=== PATIENT | male | born 1945 | race Caucasian/White ===

== ENCOUNTER → 2017-03-13 | Outpatient (CLI) | payer OTHER | END | disposition home or self-care (01) | LOC: US 13:51 | DX: E11.8 Type 2 diabetes mellitus with unspecified complications (principal); I10 Essential (primary) hypertension; R79.89 Other specified abnormal findings of blood chemistry ==

== ENCOUNTER 2017-12-29 22:47 | Inpatient (IN) | payer OTHER ==
[~2017-12-29] VITALS: Ht 193 cm; Wt 116.9 kg
--- NOTE | ~2017-12-29 | O ---
[place], [place] OPERATIVE NOTE [facility]: [id number] UNIT #: [id number] [facility] DOCTOR: MALLORY MEYERS,RACHELLE BIRTHDATE: [birth year] DOS: 12/31/2017 INDICATIONS: The patient has presented with a lower GI bleed. The patient with a history of 7 polypectomies in [facility] done and has been taking aspirin immediately postop and 2 days prior to admission. He has been experiencing blood in the stool in a gross form. His H and H has dropped. He is status post transfusion stabilization. PROCEDURE: Today's procedure part of investigation is colonoscopy plus tattoo marking of the polypoid lesion at hepatic flexure with bleeding as well as epinephrine injection at the site for marking in case surgical intervention becomes needed. PREMEDICATION: Versed and propofol. SCOPE: [employer] colonoscope 10L video. REPORT: After putting the patient in left lateral position and application of lubricant to the scope, the scope was introduced. Thereafter, under direct visualization, advanced through the length of colon without difficulty. Colon is filled of blood all the way to cecum. There is a nodular broad base infiltrated polypoid lesion at hepatic flexure, which appears to be very agitated. If not oozing blood at the present time, but appears to be very friable and has been manipulated apparently before. So, this area was injected to ensure there is no further bleeding from this polyp. Tattoo marking of the area with 2 mL of dye was undertaken and multiple sites of previous polypectomies was noticed. Blood is present all the way to the cecum. Visualization is limited. Air was suctioned out. The patient was extubated, tolerated procedure well. IMPRESSION: Lower gastrointestinal bleed, most likely from the sites of 1 of these 7 polypectomies that has been done plus epinephrine injection and hemostasis therapy for lower GI bleed plus tattoo marking of the hepatic flexure broad-based polyp infiltrated. PLAN AND DISCUSSION: Apparently, the data is in [facility] where he has had his polypectomy. At the present time, I am going to start this patient on Sandostatin drip and he has been on aspirin. I wonder platelet dysfunction also is playing a role, although his platelet function test collagen epinephrine and shows result of 134. He is actively losing blood. We are going to keep him on clear liquid. We are going to reassess his colon again on Sunday, he is going to be observed in monitor bed and I may even give him a pack unit of platelets since he is actively losing blood. [place], [place] OPERATIVE NOTE NAME: DAT SHANNON UNIT #: [id number] ROOM: [facility] DOCTOR: MALLORY MEYERS,RACHELLE BIRTHDATE: [birth year] RACHELLE TEJADA MD CM:OPRECORD:OPERATIVE NOTE [id number] RACHELLE TEJADA MD 12/31/17 1407 interface
--- NOTE | ~2017-12-29 | O ---
[place], [place] OPERATIVE NOTE NAME: DAT SHANNON UNIT #: [id number] ROOM: 518 DOCTOR: RACHELLE TEJADA MD BIRTHDATE: [birth year] DOS: 01/02/2018 HISTORY OF PRESENT ILLNESS: A 73-year-old patient who presented status post femoral polypectomy in [facility] with aggressive lower gastrointestinal bleed. PLAN AND DISCUSSION: The patient has been taking his aspirin after discharge from [place] and he had a colonoscopy with us. Colon was filled with blood and suspected polypoid lesion that was bleeding was injected with epinephrine. Bleeding has stopped today and he has been holding his H and H. PROCEDURE: Today's procedure part of investigation is colonoscopy and for assessment the continuation of bleed. PREMEDICATION: Propofol. SCOPE: Olympus forward-viewing colonoscope 10L video. REPORT: After putting the patient in left lateral position and application of lubricant to rectal pouch and digital examination, the scope was introduced. Thereafter, under direct visualization, advanced through the length of colon without difficulty. Base of the cecum explored. Large ileocecal valve was identified. Multiple sites of polypectomies throughout the colon was identified. The hepatic flexure largely infiltrated polyp was identified. This has already been tattooed in last colonoscopy and it is not bleeding at this time. No polypectomy site is bleeding at this point. Therefore, air was suctioned out and the patient extubated, tolerated the procedure well. IMPRESSION: 1. Lower gastrointestinal bleed secondary to previous polypectomies from [facility] with admission of active lower GI bleed. 2. Large polypoid infiltrative lesion at hepatic flexure. This polypoid lesion has already been tattoo marked and needs to be removed through wedge resection surgically or segmental resection. PLAN AND DISCUSSION: Otherwise, I am going to start the patient on a soft diet today and follow up on H and H tomorrow morning. Once I make sure that the H and H is not dropping, then we can discharge and follow as outpatient. Next colonoscopy in 10 years unless patient has symptoms for which follow-up should be sooner. [place], [place] OPERATIVE NOTE NAME: DAT SHANNON UNIT #: [id number] ROOM: 518 DOCTOR: RACHELLE TEJADA MD BIRTHDATE: [birth year] RACHELLE TEJADA MD CM:ARCH[place]:OPERATIVE NOTE [id number] RACHELLE TEJADA MD 01/09/18 1659 interface
--- NOTE | ~2017-12-29 | CON ---
[place], [place] REPORT OF CONSULTATION NAME: DAT SHANNON UNIT #: [id number] ROOM: [facility] DOCTOR: RACHELLE TEJADA MD BIRTHDATE: [birth year] DOS: 12/30/2017 HISTORY OF PRESENT ILLNESS: The patient has presented with melanotic stool. The patient has had last week seven polyps removed from colon in [place]. He has been taking aspirin and he has been for past 2 days having bloody BM. White blood cell was 16.7, H and H of 8 and 28 at the time of admission and platelets of 204. Ionized calcium was 4.7. INR was 1.0. Comprehensive metabolic panel: BUN and creatinine of 33 and 2.0, glucose of 354. Electrolytes were balanced. Liver function tests normal. Magnesium 1.9. Chest x-ray, diminished inspiration, otherwise CBC differential was followed and drop H and H to 7 and 24 was recognized and the most recent one status post transfusion, improved to 8 and 26. PAST MEDICAL HISTORY: Associated with COPD, BPH, diabetes, hyperlipidemia, obesity, systemic hypertension. PAST SURGICAL HISTORY: Multiple colonic polyps removal. SOCIAL HISTORY: Passive smoker, rare alcohol consumer. FAMILY HISTORY: Noncontributory. ALLERGIES: To no known medications. MEDICATIONS: Medication list has been reviewed including aspirin. REVIEW OF SYSTEMS: In general, HEENT: Denies double vision, blurred vision. RESPIRATORY: Denies shortness of breath. CARDIOVASCULAR: Denies acute chest pain. DIGESTIVE SYSTEM: GI bleed. PHYSICAL EXAMINATION: VITAL SIGNS: Stable. HEENT: Head normocephalic, nontraumatic. Mouth and buccal mucosa benign, edentulous. NECK: Supple, no thyromegaly, no cervical lymphadenopathy. CHEST: Symmetric anatomy, equal expansion. No wheeze, no rhonchi. HEART: Normal sinus rhythm, no gallop, no murmur. ABDOMEN: Soft, obese, no hepato-organomegaly. Bowel sounds present. EXTREMITIES: No cyanosis, no pedal edema. NEUROLOGIC: Alert, oriented to time, place, person. IMPRESSION: Gastrointestinal bleed, most likely secondary to postop complication of seven polypectomies that have been done in [place] in addition of the patient taking aspirin daily since then and draw for an H and H to hemoglobin of 7, status post transfusion. PLAN AND DISCUSSION: Withholding aspirin, organizing a colonoscopy tomorrow so that we can do coagulation therapy. We are going to do platelet function test [place], [place] REPORT OF CONSULTATION NAME: DAT SHANNON UNIT #: [id number] ROOM: [facility] DOCTOR: MALLORY MEYERS,RACHELLE BIRTHDATE: [birth year] in case transfusion of platelets is required and clinical reassessment. OTHER ADJUNCTIVE DIAGNOSES: As outlined in paragraph, past medical, surgical history including diabetes, hyperlipidemia, obesity, COPD, BPH, essential hypertension, GI bleed and colonic polyp. RACHELLE TEJADA MD CM:CONSTR:REPORT OF CONSULTATION 09 12/31/17 0137 interface
[2017-12-29 22:58] VITALS: BP 92/66
[2017-12-29 23:50] VITALS: BP 103/59
[2017-12-29 23:55] LABS: BASO # 0.1 10*3/uL (0.0-0.1); BASO % 0.4 % (0.0-1.0); EOS % 0.1 % (1.0-4.0); HEMATOCRIT 28.1 % (42.0-52.0); HEMOGLOBIN 8.7 g/dl (14.0-18.0); LYMPH # 1.1 10*3/uL (1.3-4.4); LYMPH % 6.8 % (27.0-41.0); MEAN CELL VOLUME 88.9 fl (80.0-94.0); MEAN CORPUSCULAR HGB 27.5 pg (27.0-31.0); MEAN PLATELET VOLUME 9.3 fl (9.6-12.3); MONO # 0.5 10*3/uL (0.1-1.0); MONO % 2.8 % (3.0-9.0); NEUT # 14.9 10*3/uL (2.3-7.9); NEUT % 89.3 % (47.0-73.0); PLATELET COUNT AUTOMATED 204 10*3/uL (130-400); RED BLOOD COUNT 3.16 10*6/uL (4.50-5.90); RED CELL DISTRI WIDTH 13.5 % (0-14.5); WHITE BLOOD COUNT 16.7 10*3/uL (4.8-10.8)
[2017-12-30] VITALS (14 sets, daily range): BP systolic 109–151; BP diastolic 61–75
[2017-12-30 00:06] LABS: ACT PARTIAL THROMBO TIME 21.2 SECONDS (20.8-31.5)
[2017-12-30 00:25] LABS: ALBUMIN 2.9 gm/dl (3.1-4.5); ALKALINE PHOSPHATASE 48 U/L (45-117); BUN 33 mg/dl (7-24); CHLORIDE 107 mmol/L (98-107); CREATININE 2.07 mg/dL (0.70-1.30); LIPASE 69 U/L (73-393); POTASSIUM 4.8 mmol/L (3.5-5.1); SGOT/AST 8 IU/L (3-35); SGPT/ALT 16 U/L (12-78); SODIUM 138 mmol/L (136-145); TOTAL PROTEIN 5.7 gm/dL (6.4-8.2); TROPONIN I < 0.015 ng/ml (<0.045)
[2017-12-30] MEDS ORDERED: ASPIR 8181 MG PO (00:36)
[2017-12-30] MEDS ORDERED: AMLODIPINE BESY10 MG PO (00:37)
[2017-12-30] MEDS ORDERED: GLIPIZIDE10 M2 PO (00:37)
[2017-12-30] MEDS ORDERED: SIMVASTATIN20 MG PO (00:38)
[2017-12-30] MEDS ORDERED: SYMB160 INH (00:39)
[2017-12-30] MEDS ORDERED: TERAZOSIN HCL2 M1 PO (00:39)
[2017-12-30] MEDS ORDERED: LASIX20 MG PO (00:39)
[2017-12-30] MEDS ORDERED: SPIRIVA -- 3018 MCG INH (00:40)
[2017-12-30] MEDS ORDERED: LANTUS SOL100 UNIT/1 SQ (00:41)
[2017-12-30 03:49] LABS: BILIRUBIN NEGATIVE (NEGATIVE); BLOOD TRACE-LYSED (NEGATIVE); CLARITY SL CLOUDY (CLEAR); COLOR YELLOW (YELLOW); GLUCOSE 3+ (NEGATIVE); KETONE TRACE (NEGATIVE); LEUKO ESTERASE 2+ (NEGATIVE); NITRITE NEGATIVE (NEGATIVE); UROBILINOGEN 0.2 E.U./dl (0.2-1.0)
[2017-12-30 03:58] LABS: BACTERIA 3+; EPITHELIAL CELLS TNTC; RBC 16-20 rbc/hpf (0-2); WBC TNTC wbc/hpf (0-5)
[2017-12-30 06:15] LABS: BASO % 0.2 % (0.0-1.0); EOS % 0.1 % (1.0-4.0); HEMOGLOBIN 7.7 g/dl (14.0-18.0); LYMPH # 2.4 10*3/uL (1.3-4.4); LYMPH % 17.6 % (27.0-41.0); MEAN CELL VOLUME 86.6 fl (80.0-94.0); MEAN CORPUSCULAR HGB 27.8 pg (27.0-31.0); MEAN CORPUSCULAR HGB CONC 32.1 g/dl (33.0-37.0); MEAN PLATELET VOLUME 8.5 fl (9.6-12.3); MONO % 7.7 % (3.0-9.0); NEUT % 73.8 % (47.0-73.0); PLATELET COUNT AUTOMATED 153 10*3/uL (130-400); RED BLOOD COUNT 2.77 10*6/uL (4.50-5.90); RED CELL DISTRI WIDTH 13.5 % (0-14.5); WHITE BLOOD COUNT 13.5 10*3/uL (4.8-10.8)
[2017-12-30 06:26] LABS: CREATININE 1.68 mg/dL (0.70-1.30); POTASSIUM 4.4 mmol/L (3.5-5.1)
[2017-12-30 06:31] LABS: PHOSPHOROUS 3.4 mg/dL (2.5-4.9)
[2017-12-30 06:37] LABS: THYROID STIM HORMONE (HS) 0.459 uIU/ml (0.358-4.75)
[2017-12-30 07:32] LABS: VITAMIN D, 25-HYDROXY 41.3 ng/mL (30-100)
[2017-12-30 07:46] LABS: IRON 14 ug/dL (65-175); TOTAL IRON BINDING CAPACITY 245 ug/dl (250-450)
[2017-12-30 18:22] LABS: BASO # 0.1 10*3/uL (0.0-0.1); BASO % 0.4 % (0.0-1.0); EOS # 0.1 10*3/uL (0.0-0.4); EOS % 0.8 % (1.0-4.0); HEMATOCRIT 26.4 % (42.0-52.0); HEMOGLOBIN 8.6 g/dl (14.0-18.0); LYMPH # 2.7 10*3/uL (1.3-4.4); LYMPH % 20.7 % (27.0-41.0); MEAN CELL VOLUME 87.1 fl (80.0-94.0); MEAN CORPUSCULAR HGB 28.4 pg (27.0-31.0); MEAN CORPUSCULAR HGB CONC 32.6 g/dl (33.0-37.0); MEAN PLATELET VOLUME 9.3 fl (9.6-12.3); MONO # 1.1 10*3/uL (0.1-1.0); MONO % 8.7 % (3.0-9.0); NEUT % 68.8 % (47.0-73.0); PLATELET COUNT AUTOMATED 160 10*3/uL (130-400); RED BLOOD COUNT 3.03 10*6/uL (4.50-5.90); RED CELL DISTRI WIDTH 13.6 % (0-14.5)
[2017-12-30 21:36] LABS: HEMATOCRIT 26.5 % (42.0-52.0); HEMOGLOBIN 8.5 g/dl (14.0-18.0)
[2017-12-31] VITALS (10 sets, daily range): BP systolic 131–171; BP diastolic 62–83
[2017-12-31 05:25] LABS: BASO # 0.1 10*3/uL (0.0-0.1); BASO % 0.5 % (0.0-1.0); EOS # 0.2 10*3/uL (0.0-0.4); EOS % 1.8 % (1.0-4.0); HEMATOCRIT 26.7 % (42.0-52.0); HEMOGLOBIN 8.7 g/dl (14.0-18.0); LYMPH # 2.6 10*3/uL (1.3-4.4); LYMPH % 20.3 % (27.0-41.0); MEAN CELL VOLUME 88.1 fl (80.0-94.0); MEAN CORPUSCULAR HGB 28.7 pg (27.0-31.0); MEAN CORPUSCULAR HGB CONC 32.6 g/dl (33.0-37.0); MEAN PLATELET VOLUME 8.6 fl (9.6-12.3); MONO % 7.5 % (3.0-9.0); NEUT # 8.8 10*3/uL (2.3-7.9); NEUT % 69.4 % (47.0-73.0); PLATELET COUNT AUTOMATED 167 10*3/uL (130-400); RED BLOOD COUNT 3.03 10*6/uL (4.50-5.90); RED CELL DISTRI WIDTH 13.7 % (0-14.5); WHITE BLOOD COUNT 12.7 10*3/uL (4.8-10.8)
[2017-12-31 05:41] LABS: ALBUMIN 3.3 gm/dl (3.1-4.5); ALKALINE PHOSPHATASE 50 U/L (45-117); CHLORIDE 109 mmol/L (98-107); CREATININE 1.38 mg/dL (0.70-1.30); PHOSPHOROUS 2.7 mg/dL (2.5-4.9); POTASSIUM 3.9 mmol/L (3.5-5.1); SGOT/AST 12 IU/L (3-35); SGPT/ALT 17 U/L (12-78); SODIUM 143 mmol/L (136-145); TOTAL PROTEIN 6.2 gm/dL (6.4-8.2)
[2017-12-31 05:49] LABS: BUN 24 mg/dl (7-24)
[2017-12-31 15:48] LABS: HEMATOCRIT 26.6 % (42.0-52.0); HEMOGLOBIN 8.4 g/dl (14.0-18.0)
[2018-01-01 04:00] VITALS: BP 153/80
[2018-01-01 06:03] LABS: BASO # 0.1 10*3/uL (0.0-0.1); BASO % 0.5 % (0.0-1.0); EOS # 0.3 10*3/uL (0.0-0.4); HEMATOCRIT 26.2 % (42.0-52.0); HEMOGLOBIN 8.1 g/dl (14.0-18.0); LYMPH # 1.5 10*3/uL (1.3-4.4); LYMPH % 12.1 % (27.0-41.0); MEAN CELL VOLUME 90.3 fl (80.0-94.0); MEAN CORPUSCULAR HGB 27.9 pg (27.0-31.0); MEAN CORPUSCULAR HGB CONC 30.9 g/dl (33.0-37.0); MEAN PLATELET VOLUME 9.2 fl (9.6-12.3); MONO # 0.9 10*3/uL (0.1-1.0); NEUT # 9.7 10*3/uL (2.3-7.9); NEUT % 77.8 % (47.0-73.0); PLATELET COUNT AUTOMATED 183 10*3/uL (130-400); WHITE BLOOD COUNT 12.4 10*3/uL (4.8-10.8)
[2018-01-01 06:18] LABS: BUN 15 mg/dl (7-24); CHLORIDE 110 mmol/L (98-107); CREATININE 1.21 mg/dL (0.70-1.30); POTASSIUM 4.1 mmol/L (3.5-5.1); SODIUM 144 mmol/L (136-145)
[2018-01-01 08:00] VITALS: BP 153/84
[2018-01-01 12:00] VITALS: BP 163/79
[2018-01-01 14:37] LABS: HEMATOCRIT 29.1 % (42.0-52.0); HEMOGLOBIN 9.1 g/dl (14.0-18.0)
[2018-01-01 16:00] VITALS: BP 167/80
[2018-01-01 20:00] VITALS: BP 173/72
[2018-01-02] VITALS (13 sets, daily range): BP systolic 149–194; BP diastolic 66–89
[2018-01-02 06:48] LABS: BASO # 0.1 10*3/uL (0.0-0.1); BASO % 0.5 % (0.0-1.0); EOS # 0.2 10*3/uL (0.0-0.4); EOS % 1.6 % (1.0-4.0); HEMATOCRIT 27.9 % (42.0-52.0); HEMOGLOBIN 8.8 g/dl (14.0-18.0); LYMPH # 1.6 10*3/uL (1.3-4.4); LYMPH % 13.7 % (27.0-41.0); MEAN CELL VOLUME 89.7 fl (80.0-94.0); MEAN CORPUSCULAR HGB 28.3 pg (27.0-31.0); MEAN CORPUSCULAR HGB CONC 31.5 g/dl (33.0-37.0); MEAN PLATELET VOLUME 8.7 fl (9.6-12.3); MONO # 0.9 10*3/uL (0.1-1.0); MONO % 7.3 % (3.0-9.0); NEUT # 8.8 10*3/uL (2.3-7.9); NEUT % 76.4 % (47.0-73.0); PLATELET COUNT AUTOMATED 199 10*3/uL (130-400); RED BLOOD COUNT 3.11 10*6/uL (4.50-5.90); RED CELL DISTRI WIDTH 13.9 % (0-14.5); WHITE BLOOD COUNT 11.6 10*3/uL (4.8-10.8)
[2018-01-02 07:00] LABS: BUN 12 mg/dl (7-24); CHLORIDE 108 mmol/L (98-107); CREATININE 1.28 mg/dL (0.70-1.30); POTASSIUM 3.6 mmol/L (3.5-5.1); SODIUM 144 mmol/L (136-145)
[2018-01-03] VITALS: BP 129/48
[2018-01-03 07:12] LABS: BASO % 0.3 % (0.0-1.0); EOS # 0.1 10*3/uL (0.0-0.4); HEMOGLOBIN 8.1 g/dl (14.0-18.0); LYMPH # 1.3 10*3/uL (1.3-4.4); LYMPH % 9.4 % (27.0-41.0); MEAN CELL VOLUME 90.6 fl (80.0-94.0); MEAN CORPUSCULAR HGB 28.2 pg (27.0-31.0); MEAN CORPUSCULAR HGB CONC 31.2 g/dl (33.0-37.0); MONO # 1.1 10*3/uL (0.1-1.0); MONO % 8.1 % (3.0-9.0); NEUT # 10.9 10*3/uL (2.3-7.9); NEUT % 80.7 % (47.0-73.0); PLATELET COUNT AUTOMATED 231 10*3/uL (130-400); RED BLOOD COUNT 2.87 10*6/uL (4.50-5.90); RED CELL DISTRI WIDTH 14.3 % (0-14.5); WHITE BLOOD COUNT 13.5 10*3/uL (4.8-10.8)
[2018-01-03 08:00] VITALS: BP 173/74
[2018-01-03 10:22] VITALS: BP 144/61
[2018-01-03] MEDS ORDERED: Ciprofloxacin500 MG PO (11:24)
[2018-01-03 12:00] VITALS: BP 154/68
== END 2018-01-03 15:19 | disposition home or self-care (01) | DRG 871 ==
LOC: ED 22:47 → EDHOLD 23:47 → ICCU 23:47 → 5E 01-01 15:18
PROVIDERS: Emergency Medicine Emergency Medical Services; Family Medicine; Internal Medicine; Internal Medicine Gastroenterology; Student in an Organized Health Care Education/Training Program
PROC: 30233N1 Transfusion of Nonautologous Red Blood Cells into Peripheral Vein, Percutaneous Approach (ICD-10-PCS; 2017-12-30)
PROC: 3E0H8GC Introduction of Other Therapeutic Substance into Lower GI, Via Natural or Artificial Opening Endoscopic (ICD-10-PCS; principal; 2017-12-31)
PROC: 0DJD8ZZ Inspection of Lower Intestinal Tract, Via Natural or Artificial Opening Endoscopic (ICD-10-PCS; 2018-01-02)
DX: A41.9 Sepsis, unspecified organism (principal); N17.0 Acute kidney failure with tubular necrosis; E44.0 Moderate protein-calorie malnutrition; E11.65 Type 2 diabetes mellitus with hyperglycemia; E87.8 Other disorders of electrolyte and fluid balance, not elsewhere classified; I95.9 Hypotension, unspecified; K92.2 Gastrointestinal hemorrhage, unspecified; D62 Acute posthemorrhagic anemia; N39.0 Urinary tract infection, site not specified; J44.9 Chronic obstructive pulmonary disease, unspecified; R31.9 Hematuria, unspecified; Z79.4 Long term (current) use of insulin; I10 Essential (primary) hypertension; E78.5 Hyperlipidemia, unspecified; N40.0 Benign prostatic hyperplasia without lower urinary tract symptoms; E66.9 Obesity, unspecified; K63.5 Polyp of colon; Z79.899 Other long term (current) drug therapy; Z79.82 Long term (current) use of aspirin; Z87.891 Personal history of nicotine dependence; Z82.49 Family history of ischemic heart disease and other diseases of the circulatory system; Z82.69 Family history of other diseases of the musculoskeletal system and connective tissue; Z86.010 Personal history of colon polyps; Z68.31 Body mass index [BMI] 31.0-31.9, adult

== ENCOUNTER → 2018-01-05 | Outpatient (CLI) | payer OTHER ==
[~2018-01-05] MED LIST: AMLODIPINE BESY10 MG PO; ASPIR 8181 MG PO; Ciprofloxacin500 MG PO; GLIPIZIDE10 M2 PO; LANTUS SOL100 UNIT/1 SQ; LASIX20 MG PO; SIMVASTATIN20 MG PO; SPIRIVA -- 3018 MCG INH; SYMB160 INH; TERAZOSIN HCL2 M1 PO
[2018-01-05 16:39] LABS: HEMOGLOBIN 7.6 g/dl (14.0-18.0)
== END | disposition home or self-care (01) ==
LOC: LAB 16:09
PROVIDERS: Family Medicine
DX: K92.2 Gastrointestinal hemorrhage, unspecified (principal)

== ENCOUNTER 2018-01-10 10:33 | Emergency (ER) | payer OTHER, MEDICARE ==
[~2018-01-10] VITALS: Ht 187.9 cm; Wt 116.6 kg
[2018-01-10 10:57] LABS: BASO % 0.4 % (0.0-1.0); EOS # 0.1 10*3/uL (0.0-0.4); EOS % 1.2 % (1.0-4.0); HEMATOCRIT 24.9 % (42.0-52.0); HEMOGLOBIN 7.8 g/dl (14.0-18.0); LYMPH # 1.3 10*3/uL (1.3-4.4); LYMPH % 12.1 % (27.0-41.0); MEAN CELL VOLUME 87.1 fl (80.0-94.0); MEAN CORPUSCULAR HGB 27.3 pg (27.0-31.0); MEAN CORPUSCULAR HGB CONC 31.3 g/dl (33.0-37.0); MEAN PLATELET VOLUME 8.1 fl (9.6-12.3); MONO # 0.7 10*3/uL (0.1-1.0); MONO % 6.4 % (3.0-9.0); NEUT # 8.8 10*3/uL (2.3-7.9); NEUT % 79.4 % (47.0-73.0); PLATELET COUNT AUTOMATED 261 10*3/uL (130-400); RED BLOOD COUNT 2.86 10*6/uL (4.50-5.90); RED CELL DISTRI WIDTH 13.7 % (0-14.5); WHITE BLOOD COUNT 11.1 10*3/uL (4.8-10.8)
[2018-01-10 11:12] LABS: ALBUMIN 3.2 gm/dl (3.1-4.5); ALKALINE PHOSPHATASE 59 U/L (45-117); BUN 25 mg/dl (7-24); CHLORIDE 104 mmol/L (98-107); CREATININE 1.33 mg/dL (0.70-1.30); POTASSIUM 3.6 mmol/L (3.5-5.1); SGOT/AST 11 IU/L (3-35); SGPT/ALT 21 U/L (12-78); SODIUM 140 mmol/L (136-145); TOTAL PROTEIN 6.8 gm/dL (6.4-8.2)
== END 2018-01-10 15:26 | disposition home or self-care (01) ==
LOC: ED 10:33
PROVIDERS: Nurse Practitioner Family
DX: D64.9 Anemia, unspecified (principal); I10 Essential (primary) hypertension; E11.9 Type 2 diabetes mellitus without complications; J44.9 Chronic obstructive pulmonary disease, unspecified; E78.5 Hyperlipidemia, unspecified; E66.9 Obesity, unspecified; Z79.4 Long term (current) use of insulin; Z68.34 Body mass index [BMI] 34.0-34.9, adult; Z87.891 Personal history of nicotine dependence; Z79.899 Other long term (current) drug therapy

== ENCOUNTER 2019-11-28 15:58 | Emergency (ER) | payer MEDICARE ==
[~2019-11-28] VITALS: Ht 193 cm; Wt 122.5 kg
[2019-11-28 16:41] LABS: BASO % 0.2 % (0.0-1.0); EOS % 0.3 % (1.0-4.0); HEMATOCRIT 40.6 % (42.0-52.0); LYMPH # 0.6 10*3/uL (1.3-4.4); LYMPH % 6.2 % (27.0-41.0); MEAN CELL VOLUME 86.4 fl (80.0-94.0); MEAN CORPUSCULAR HGB 27.2 pg (27.0-31.0); MEAN CORPUSCULAR HGB CONC 31.5 g/dl (33.0-37.0); MEAN PLATELET VOLUME 10.1 fl (9.6-12.3); MONO # 0.6 10*3/uL (0.1-1.0); MONO % 6.8 % (3.0-9.0); NEUT # 7.9 10*3/uL (2.3-7.9); NEUT % 85.7 % (47.0-73.0); PLATELET COUNT AUTOMATED 221 10*3/uL (130-400); RED CELL DISTRI WIDTH 16.7 % (0-14.5); WHITE BLOOD COUNT 9.3 10*3/uL (4.8-10.8)
[2019-11-28 16:52] LABS: ACT PARTIAL THROMBO TIME 25.4 SECONDS (20.0-32.1)
[2019-11-28 16:57] LABS: ALBUMIN 2.9 gm/dl (3.1-4.5); ALKALINE PHOSPHATASE 520 U/L (45-117); BUN 104 mg/dl (7-24); CHLORIDE 107 mmol/L (98-107); CREATININE 3.74 mg/dL (0.70-1.30); SGOT/AST 285 IU/L (3-35); SGPT/ALT 562 U/L (12-78); SODIUM 134 mmol/L (136-145); TOTAL PROTEIN 6.8 gm/dL (6.4-8.2)
[2019-11-28 17:03] LABS: TROPONIN I < 0.015 ng/ml (<0.045)
[2019-11-28 17:08] LABS: POTASSIUM 6.1 mmol/L (3.5-5.1)
[2019-11-28 19:16] LABS: ABG BASE EXCESS -11.7 mmol/L (-2.0-2.0); ARTERIAL BLOOD GAS PH 7.288 (7.35-7.45)
== END 2019-11-28 21:41 | disposition short-term general hospital (02) ==
LOC: ED 15:58
PROVIDERS: Emergency Medicine
DX: K72.90 Hepatic failure, unspecified without coma (principal); E87.2 Acidosis; N17.9 Acute kidney failure, unspecified; E87.5 Hyperkalemia; J90 Pleural effusion, not elsewhere classified; R74.0 Nonspecific elevation of levels of transaminase and lactic acid dehydrogenase [LDH]; J44.9 Chronic obstructive pulmonary disease, unspecified; E11.9 Type 2 diabetes mellitus without complications; E78.5 Hyperlipidemia, unspecified; I10 Essential (primary) hypertension; Z79.899 Other long term (current) drug therapy; Z79.4 Long term (current) use of insulin